=== PATIENT | female | born 1960 | race Caucasian/White ===

== ENCOUNTER 2018-07-01 19:00 | Emergency (ER) | payer MEDICARE, OTHER ==
[~2018-07-01] VITALS: Ht 175.3 cm; Wt 88.6 kg
[2018-07-01] MEDS ORDERED: ASCO500 PO (19:38)
[2018-07-01] MEDS ORDERED: FE PR (19:38)
[2018-07-01] MEDS ORDERED: SIME80 PO (19:38)
[2018-07-01] MEDS ORDERED: NYST15PO3 TP (19:38)
[2018-07-01] MEDS ORDERED: ATOR40TA28 PO (19:38)
[2018-07-01] MEDS ORDERED: APIX5TAB PO (19:38)
[2018-07-01] MEDS ORDERED: ACET-2247 PO ×2 (19:38)
[2018-07-01] MEDS ORDERED: OXYC10IR PO (19:38)
[2018-07-01] MEDS ORDERED: MOM30 PO (19:38)
[2018-07-01] MEDS ORDERED: BISA10S PR (19:38)
[2018-07-01] MEDS ORDERED: HYDR-3110 PO (19:38)
[2018-07-01] MEDS ORDERED: OS500 PO (19:38)
[2018-07-01] MEDS ORDERED: CYCL10 PO (19:38)
[2018-07-01 20:15] VITALS: BP 130/73
== END 2018-07-01 21:21 | disposition home or self-care (01) ==
LOC: EMS 19:02
DX: F29 Unspecified psychosis not due to a substance or known physiological condition (principal); K21.9 Gastro-esophageal reflux disease without esophagitis; E78.00 Pure hypercholesterolemia, unspecified; I10 Essential (primary) hypertension; Z88.6 Allergy status to analgesic agent; Z88.1 Allergy status to other antibiotic agents; Z88.2 Allergy status to sulfonamides; Z88.8 Allergy status to other drugs, medicaments and biological substances